=== PATIENT | male | born 1980 | race Caucasian/White ===

== ENCOUNTER 2017-06-14 23:27 | Emergency (ER) | payer OTHER ==
[~2017-06-14] VITALS: Ht 185.4 cm; Wt 94.0 kg
[~2017-06-14 23:27] MED LIST: CLR10 PO; IBUP-1050 PO; ONDA4TAB7 SL; PRLSR20 PO; [UNRECOGNIZED DRUG - CODE] PO
[2017-06-14 23:34] VITALS: TEMP 36.8; Ht 185.4 cm; Wt 94.0 kg
[2017-06-14] MEDS ORDERED: PROPARACAINE HCL 0.5% OP SOLN 15 ML BTL OP STA (23:58)
[2017-06-15] MEDS ORDERED: CIPROFLOXACIN HCL 0.3% OP SOLN 2.5 ML BTL OP STA (00:15)
[2017-06-15 00:28] VITALS: BP 134/83; PULSE 65; O2SAT 96
--- NOTE | 2017-06-15 06:08 | EMERGENCY ROOM VISIT NOTE ---
ED Visit Note First contact with patient: 23:58 CHIEF COMPLAINT: Foreign body of the eye HISTORY OF PRESENT ILLNESS: This 37-year-old patient presents to the emergency department complaining of pain and foreign body sensation in the left eye. 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 There has been a constant moderate pain and irritation, redness and tearing in the eye. The vision has not been decreased over all. The patient does not wear contacts. The patient rates the pain as 3/10. The patient has had previous injuries to this eye. Tetanus shot is up to date. Patient has had Lasic surgery before REVIEW OF SYSTEMS: A 6 system review of systems was completed with positives and pertinent negatives listed in the HPI. ALLERGIES: None MEDICATIONS: Reviewed PMH: Medical Problems: (1) Calculus of kidney and ureter Status: Resolved (2) GERD (gastroesophageal reflux disease) Status: Chronic (3) IBS (irritable bowel syndrome) Status: Chronic (4) IBS (irritable bowel syndrome) Status: Chronic (5) Work related injury Status: Resolved Surgical Problems: (1) S/P herniorrhaphy Status: Resolved SOCIAL HISTORY: No drug use PHYSICAL EXAM: Vital Signs: Reviewed Nurse's notes, vital signs stable. Visual acuity reviewed from nursing. GENERAL: This is a pleasant male, in no acute distress, but who is uncomfortable from the eye problem. Well-developed well- nourished. EYES: The pupils are equal round and reactive to light and accommodation. EOMs are full and without tenderness. There is no discharge from the left eye which is injected. There is a piece of metal visible on the cornea. There is no foreign body visible under the eyelid after lid eversion. Metallic foreign body was seen embedded in the cornea under slit lamp exam. The cornea was clear and no hyphema was seen. Fluorescein uptake was observed with ultraviolet light significant for a corneal abrasion only around the previous location of the foreign body. EMERGENCY DEPARTMENT COURSE: I examined the patient. Alcaine 2 drops were placed in the patient's left eye. A slit lamp exam was performed as above. The metallic foreign body was removed using 18-gauge needle. There was a rust ring present and some of this was removed and I did not want to do extensive removal and I advised the patient to follow-up with ophthalmology. Ciloxan two drops was placed in the patient's left eye. Patient had a negative Adan sign. The patient was discharged home in good condition. DIAGNOSIS: Foreign body with subsequent corneal abrasion of the left eye DISCHARGE INSTRUCTIONS AND TREATMENT: As below Case reviewed with my attending Problem List Medical Problems: (1) Calculus of kidney and ureter Status: Resolved (2) GERD (gastroesophageal reflux disease) Status: Chronic (3) IBS (irritable bowel syndrome) Status: Chronic (4) IBS (irritable bowel syndrome) Status: Chronic (5) Work related injury Status: Resolved Surgical Problems: (1) S/P herniorrhaphy Status: Resolved Current/Historical Medications No Active Prescriptions or Reported Meds Allergies Coded Allergies: No Known Allergies (Unverified , NONE, 06/15/17) Vital Signs Date Time Temp Pulse Resp B/P (MAP) Pulse Ox O2 Delivery O2 Flow Rate FiO2 06/15/17 00:28 65 18 134/83 96 06/14/17 23:34 36.8 67 18 130/80 96 Room Air Medications Administered Medications (Trade) Dose Ordered Sig/Patricia Route Start Time Stop Time Status Last Admin Dose Admin Ciprofloxacin HCl (Ciprofloxacin 0.3% Op Soln) 2 drops NOW STAT OP 06/15/17 00:15 06/15/17 00:20 DC 06/15/17 00:22 37 DROPS Departure Information Impression Primary Impression: Status post removal of metal from eye Additional Impression: Foreign body in eye Dispostion Home / Self-Care Condition GOOD Prescriptions No Active Prescriptions or Reported Meds Referrals Jim Bower D.O. Forms WORK / SCHOOL INSTRUCTIONS, HOME CARE DOCUMENTATION FORM, IMPORTANT VISIT INFORMATION Patient Instructions Corneal Injury, [facility], ED Foreign Body Cornea Additional Instructions Ciloxan 2 drops into affected eye every 2 hrs while awake x 2 days then every 4 hrs for 5 days for a total of 7 days. No contacts for 10 days. Do not rub your eyes, and wash hands frequently. Cool compress for discomfort. Avoid irritants like smoke, wind, and sun. Throw out eye cosmetics. Follow up with eye doctor if symptoms on Friday. Call for an appointment. Return sooner for any change in vision. Problem Qualifiers
== END 2017-06-15 00:30 | disposition home or self-care (01) ==
LOC: C.EDB 23:28
DX: T15.02XA Foreign body in cornea, left eye, initial encounter (principal); X58.XXXA Exposure to other specified factors, initial encounter; Y92.89 Other specified places as the place of occurrence of the external cause; Y99.0 Civilian activity done for income or pay; Z87.442 Personal history of urinary calculi; K21.9 Gastro-esophageal reflux disease without esophagitis; K58.9 Irritable bowel syndrome, unspecified